=== PATIENT | female | born 1980 ===

== ENCOUNTER 2018-05-26 09:01 | Outpatient (CLI) | payer OTHER | END 2018-05-26 13:30 | disposition home or self-care (01) | LOC: NST 09:01 | DX: Z34.83 Encounter for supervision of other normal pregnancy, third trimester (principal) ==

== ENCOUNTER 2018-06-30 08:30 | Outpatient (CLI) | payer OTHER | END 2018-06-30 09:29 | disposition home or self-care (01) | LOC: NST 08:30 | DX: O10.013 Pre-existing essential hypertension complicating pregnancy, third trimester (principal); Z34.83 Encounter for supervision of other normal pregnancy, third trimester ==

== ENCOUNTER 2018-07-12 08:32 | Outpatient (CLI) | payer OTHER | END 2018-07-12 09:55 | disposition home or self-care (01) | LOC: NST 08:32 | DX: Z34.83 Encounter for supervision of other normal pregnancy, third trimester (principal) ==

== ENCOUNTER 2018-07-18 08:27 | Outpatient (CLI) | payer OTHER ==
[2018-07-18] MEDS ORDERED: LABETALOL HCL200 MG PO (13:46)
[2018-07-18] MEDS ORDERED: PRENATAL FORMU1 EAC1 PO (13:46)
== END 2018-07-18 09:08 | disposition still patient (30) ==
LOC: NST 08:27
DX: O13.3 Gestational [pregnancy-induced] hypertension without significant proteinuria, third trimester (principal); Z34.83 Encounter for supervision of other normal pregnancy, third trimester

== ENCOUNTER 2018-07-18 09:01 | Inpatient (IN) | payer OTHER ==
[~2018-07-18] VITALS: Ht 157.5 cm; Wt 61.7 kg
[2018-07-18] MEDS ORDERED: PRENATAL FORMU1 EAC1 PO (13:46)
[2018-07-18] MEDS ORDERED: LABETALOL HCL200 MG PO (13:46)
== END 2018-07-21 11:34 | disposition home or self-care (01) | DRG 788 ==
LOC: OB/GYN 09:01 → LDR 09:01 → O/R 13:47 → OB/GYN 15:23
PROVIDERS: Obstetrics & Gynecology Maternal & Fetal Medicine
PROC: 4A1HXCZ Monitoring of Products of Conception, Cardiac Rate, External Approach (ICD-10-PCS; 2018-07-18)
PROC: 10D00Z1 Extraction of Products of Conception, Low, Open Approach (ICD-10-PCS; principal; 2018-07-18 13:00)
DX: O82 Encounter for cesarean delivery without indication (principal); Z3A.37 37 weeks gestation of pregnancy; Z37.0 Single live birth